=== PATIENT | female | born 1985 | race American Indian/Alaskan Native ===

== ENCOUNTER 2020-06-07 16:11 | Emergency (ER) | payer MEDICAID ==
[2020-06-07] MEDS ORDERED: ASPIRIN 325 MG TAB PO ONE (16:17)
[2020-06-07 16:42] LABS: Basophils % (Auto) 1.2 % (0.0-1.8); Eosinophils % (Auto) 1.2 % (0.0-4.3); Hematocrit 24.8 % (30.3-42.9); Hemoglobin 8.4 gm/dl (10.1-14.3); Lymphocytes % (Auto) 27.6 % (13.4-35.0); Mean Corpuscular HGB Conc 34 % (30-34); Mean Corpuscular Volume 87 fl (79-97); Monocytes # (Auto) 0.3 K/mm3 (0.0-0.8); Monocytes % (Auto) 7.5 % (0.0-7.3); Platelet Count 207 K/mm3 (140-440); Red Blood Count 2.85 M/mm3 (3.65-5.03); Red Cell Distribution Width 16.5 % (13.2-15.2)
--- NOTE | 2020-06-07 17:07 | XRay Report ---
CHEST PA AND LATERAL VIEWS INDICATION: Chest Pain. COMPARISON: None. FINDINGS: Support devices: None. Heart: Within normal limits. Lungs/Pleura: No acute pulmonary or pleural findings. IMPRESSION: 1. No acute findings. Signer Name: Felice Florentino MD Signed: 06/07/2020 5:02 PM Workstation Name: [id number]
[2020-06-07 17:11] LABS: Blood Urea Nitrogen 24 mg/dL (7-17); Calcium 9.5 mg/dL (8.4-10.2); Hemolysis Index 5
[2020-06-07 17:12] LABS: BUN/Creatinine Ratio 4
--- NOTE | 2020-06-07 19:41 | Event Note ---
ED Screening Note Date of service: 06/07/20 Time: 19:37 ED Screening Note: 32-year-old female with end-stage renal disease who presents dialysis today. mid chest pain new dx, only 5 treatments had Migratory Worker: Dr Smith This initial assessment/diagnostic orders/clinical plan/treatment(s) is/are subject to change based on patients health status, clinical progression and re- assessment by fellow clinical providers in the ED. Further treatment and workup at subsequent clinical providers discretion. Patient/guardian urged not to elope from the ED as their condition may be serious if not clinically assessed and managed. Initial orders include: labs, ekg cxr
--- NOTE | 2020-06-07 21:59 | Emergency Department Report ---
ED Chest Pain HPI - General Chief Complaint: Chest Pain Stated Complaint: CHEST PAIN PUI?: No Time Seen by Provider: 06/07/20 21:52 Source: patient, EMS ( EMS documentation not available at time of chart dictation ), RN notes reviewed Mode of arrival: Ambulatory Limitations: No Limitations - History of Present Illness Initial Comments: The patient was evaluated in the emergency department for symptoms described in the history of present illness. He/she was evaluated in the context of the global COVID-19 pandemic, which necessitated consideration that the patient might be at risk for infection with the virus that causes COVID-19. Institutional protocols and algorithms that pertain to the evaluation of patients at risk for COVID-19 are in a state of rapid change based on information released by regulatory bodies including the CDC and federal and state organizations. These policies and algorithms were followed during the patient's care in the emergency department. Please note that these policies, procedures and recommendations changed on a rapid basis. During the entire history and physical examination, I am chaperoned by Mailing Machine Operator/technology risk intern Chip Moreira Nephrology: Alek Primary care/cardiology: Aramis Past medical history: End-stage renal disease on hemodialysis, lupus and hypertension The patient is a pleasant 35-year-old female. She is not known to myself previously. She presents to the ER today with a complaint of resolved chest pain. Patient was at hemodialysis today, and completed essentially a full hemodialysis session. Prior to her hemodialysis session, she states that she was in her usual state of health, without any physical pain or complaint. She states that during dialysis today, at approximately 12:00 PM, she developed constant central nonradiating chest pain, which lasted for around 3 hours, which did not radiate to the back, arms or neck, without vomiting, diaphoresis or shortness of breath. The pain did not have exacerbating or relieving factors, it is now resolved. The patient denies surgery, travel, oral contraceptive use, leg pain, leg swelling, shortness of breath. She states that she is not , and has not delivered given within the past 6 weeks. Denies fever, cough, loss of taste or loss of smell. Had a mild frontal headache during dialysis, which was not sudden, not thunderclap in nature, not maximal in intensity, not the worst headache of her life, and now resolved. She states she has no symptoms at this time, and has no acute complaints at this time. No recent aspirin consumption, no cardiac risk ratification that she is aware of. She states she is due for her nighttime blood pressure medications, which include hydralazine, and nifedipine. MD Complaint: chest pain -: Sudden Onset: other Pain Location: substernal, left chest Pain Radiation: none Severity: mild Quality: aching Consistency: now resolved Improves With: nothing Worsens With: nothing re: other (As per history of present illness) Treatments Prior to Arrival: aspirin (Given aspirin by EMS) Aspirin use within the Past 7 Days: (0) No - Related Data On Oral Contraceptives: No Previous Rx's Medication Instructions Recorded Last Taken Type Aspirin 325 mg PO ONCE #30 tablet 06/07/20 Unknown Rx Allergies Allergy/AdvReac Type Severity Reaction Status Date / Time naproxen Allergy Unknown Verified 06/07/20 16:16 Heart Score - HEART Score History: Slightly suspicious EKG: Non-specific Age: < 45 Risk factors: 1-2 risk factors Troponin: < normal limit HEART Score: 2 - Critical Actions Critical Actions: 0-3 pts:0.9-1.7%risk of adverse cardiac event.Candidate for discharge ED Review of Systems ROS: Stated complaint: CHEST PAIN Other details as noted in HPI Comment: All other systems reviewed and negative Cardiovascular: chest pain Neurological: headache ED Past Medical Hx - Past Medical History Hx Hypertension: Yes Hx Renal Disease: Yes Additional medical history: lupus - Surgical History Past Surgical History?: No - Social History Smoking Status: Never Smoker Substance Use Type: None - Medications Home Medications: Home Medications Medication Instructions Recorded Confirmed Last Taken Type Aspirin 325 mg PO ONCE #30 tablet 06/07/20 Unknown Rx ED Physical Exam - General Limitations: No Limitations General appearance: alert, in no apparent distress - Head Head exam: Present: atraumatic, normocephalic - Eye Eye exam: Present: normal appearance, EOMI. Absent: nystagmus - ENT ENT exam: Present: normal exam, normal orophraynx, mucous membranes moist, normal external ear exam - Neck Neck exam: Present: normal inspection, full ROM. Absent: tenderness, meningismus - Respiratory Respiratory exam: Present: normal lung sounds bilaterally. Absent: respiratory distress, wheezes, rales, rhonchi, stridor, decreased breath sounds - Cardiovascular Cardiovascular Exam: Present: regular rate, normal rhythm, normal heart sounds. Absent: bradycardia, tachycardia, irregular rhythm, systolic murmur, diastolic murmur, rubs, gallop - GI/Abdominal GI/Abdominal exam: Present: soft. Absent: distended, tenderness, guarding, rebound, rigid, pulsatile mass - Extremities Exam Extremities exam: Present: normal inspection (Left upper extremity fistula, without redness, pus or streaking. There is no tenderness.), full ROM, other (2+ pulses noted in the bilateral upper and lower extremities. There is no palpable cord. negative Homans sign. Muscular compartments are soft. The pelvis is stable.). Absent: pedal edema, calf tenderness - Back Exam Back exam: Present: normal inspection, full ROM. Absent: tenderness, CVA tenderness (R), CVA tenderness (L), paraspinal tenderness, vertebral tenderness - Neurological Exam Neurological exam: Present: alert, normal gait, other (No facial droop. Tongue midline. Extraocular movements intact bilaterally. Facial sensation intact to light touch in V1, V2, V3 distribution bilaterally. 5 and a 5 strength in 4 extremities. Sensation intact to light touch in 4 extremities.). Absent: motor sensory deficit - Psychiatric Psychiatric exam: Present: normal affect, normal mood - Skin Skin exam: Present: warm, dry, intact, normal color. Absent: rash ED Course Vital Signs 06/07/20 06/07/20 16:15 22:20 Temperature 97.8 F Pulse Rate 124 H 104 H Respiratory 19 19 Rate Blood Pressure 148/83 Blood Pressure 164/106 [Right] O2 Sat by Pulse 96 100 Oximetry JOSE score - Jose Score Age > 65: (0) No Aspirin use within the Past 7 Days: (0) No 3 or more CAD Risk Factors: (0) No 2 or more Angina events in past 24 hrs: (0) No Known CAD with more than 50% Stenosis: (0) No Elevated Cardiac Markers: (0) No ST Deviation Greater than 0.5mm: (0) No JOSE Score: 0 ED Medical Decision Making - Lab Data Result diagrams: 06/07/20 16:29 06/07/20 16:29 Vital Signs 06/07/20 06/07/20 16:15 22:20 Temperature 97.8 F Pulse Rate 124 H 104 H Respiratory 19 19 Rate Blood Pressure 148/83 Blood Pressure 164/106 [Right] O2 Sat by Pulse 96 100 Oximetry Lab Results 06/07/20 06/07/20 06/07/20 Range/Units 16:29 16:29 19:51 WBC 3.5 L (4.5-11.0) K/mm3 RBC 2.85 L (3.65-5.03) M/mm3 Hgb 8.4 L (10.1-14.3) gm/dl Hct 24.8 L (30.3-42.9) % MCV 87 (79-97) fl MCH 30 (28-32) pg MCHC 34 (30-34) % RDW 16.5 H (13.2-15.2) % Plt Count 207 (140-440) K/mm3 Lymph % (Auto) 27.6 (13.4-35.0) % [place] % (Auto) 7.5 H (0.0-7.3) % Eos % (Auto) 1.2 (0.0-4.3) % Baso % (Auto) 1.2 (0.0-1.8) % Lymph # (Auto) 1.0 L (1.2-5.4) K/mm3 [place] # (Auto) 0.3 (0.0-0.8) K/mm3 Eos # (Auto) 0.0 (0.0-0.4) K/mm3 Baso # (Auto) 0.0 (0.0-0.1) K/mm3 Seg Neutrophils % 62.5 (40.0-70.0) % Seg Neutrophils # 2.2 (1.8-7.7) K/mm3 Sodium 136 L (137-145) mmol/L Potassium 3.3 L (3.6-5.0) mmol/L Chloride 93.7 L (98-107) mmol/L Carbon Dioxide 25 (22-30) mmol/L Anion Gap 21 mmol/L BUN 24 H (7-17) mg/dL Creatinine 6.2 H (0.6-1.2) mg/dL Estimated GFR 8 ml/min BUN/Creatinine Ratio 4 % Glucose 86 (65-100) mg/dL Calcium 9.5 (8.4-10.2) mg/dL Troponin T < 0.010 < 0.010 (0.00-0.029) ng/mL - EKG Data -: EKG Interpreted by Me - EKG Data 06/07/20 22:53 EKG #1 shows sinus rhythm, tachycardia, QTC 465 ms, high left ventricular voltage, normal axis, borderline atrial enlargement. Abnormal EKG, not a STEMI. EKG #2 unchanged from prior, nonspecific T biphasic T waves V2, this may be juvenile T wave inversion versus lead placement. EKG #2 is not consistent with a STEMI. Rate 92 bpm - Radiology Data Radiology results: report reviewed, image reviewed X-ray of the chest shows no acute findings. - Medical Decision Making Parental diagnosis, including but not limited to: GERD, gastritis, hiatal hernia, coronary artery disease, pneumonia, end-stage renal disease, shunt phenomenon Assessment and plan: 35-year-old female with resolved tachycardia, heart rate 92 bpm, not currently tachycardic, tachypneic or hypoxic, low risk by Saurabh holman, low risk for major adverse cardiac event as per heart score, chest pain-free for hours, troponin negative x2, EKG essentially unchanged x2, with the exception of a biphasic T wave in V2, low risk for major adverse cardiac event as per heart score. Patient resting comfortably, 4 hours, in the ER, in no acute distress. She is equal pulses in the upper and lower extremities, unremarkable x-ray of the chest, no pulsatile abdominal mass. Aortic pathology is unlikely. Patient is suitable to follow-up with an outpatient java developer analyst to complete a cardiac risk ratification. Have discussed this plan of care with the patient, and she is amenable to following up as an outpatient. At this per this institutions policy, procedure, protocol, facesheet is transmitted to [facility] heart cardiology, who should contact the patient to follow-up as an outpatient to complete a cardiac risk ratification. Patient will also be provided with her name, phone number and address to arrange close outpatient follow-up. She will be given her nocturnal antihypertensive therapy. Laboratory studies suggestive of anemia of chronic disease, likely secondary to lupus and renal insufficiency, patient does not require emergent hemodialysis at this time. Mild hypokalemia likely secondary to recent hemodialysis Critical care attestation.: If time is entered above; I have spent that time in minutes in the direct care of this critically ill patient, excluding procedure time. ED Disposition Clinical Impression: History of chest pain, Elevated blood pressure reading, End stage renal disease, History of lupus Disposition: DC-01 TO HOME OR SELFCARE Is pt being admited?: No Does the pt Need Aspirin: No Condition: Stable Additional Instructions: Please take aspirin, 325 mg on a daily basis. Please follow-up with a java developer analyst within the next 2 to 3 days. For the patient's convenience, local cardiology practices have been listed on this discharge paperwork. Please contact any of the local list cardiology practices, inform office staff that patient has been seen in this emergency room for chest pain, and we have recommended follow-up with an outpatient java developer analyst within the next 2 to 3 d ays. Please continue current outpatient medications. Please follow-up with your kidney doctor/casino worker within the next 2 weeks. Please return to the emergency room right away with new pain, worsening pain, migration of pain, projectile vomiting, change in mental status, confusion, inability to tolerate liquid feeds, new, worsened or different symptoms not present on the initial emergency room evaluation. Referrals: TU JEFFREY MD [Staff Physician] - 3-5 Days [facility] [Provider Group] - 3-5 Days
[2020-06-07 22:21] VITALS: BP 164/106
[2020-06-07] MEDS ORDERED: amLODIPine 10 MG TAB PO STA (22:34)
[2020-06-07] MEDS ORDERED: hydrALAZINE 25 MG TAB PO ONE (22:34)
== END 2020-06-07 23:37 | disposition home or self-care (01) ==
LOC: ED 16:11
DX: R07.89 Other chest pain (principal); R03.0 Elevated blood-pressure reading, without diagnosis of hypertension; I12.0 Hypertensive chronic kidney disease with stage 5 chronic kidney disease or end stage renal disease; N18.6 End stage renal disease; Z79.82 Long term (current) use of aspirin; Z88.8 Allergy status to other drugs, medicaments and biological substances
CPT/HCPCS: 36415; 71046; 80048; 84484; 85025; 93005